=== PATIENT | female | born 1975 ===

== ENCOUNTER 2017-05-04 19:43 | Emergency (ER) | payer SELFPAY ==
[2017-05-04] MEDS ORDERED: Sodium Chloride 0.9% 1,000 ML IV STA (20:40)
[2017-05-04 20:55] LABS: BASO # 0.1 K/uL (0.0-0.2); BASO % 0.7 % (0.0-2.0); EOS # 0.2 K/uL (0.0-0.7); EOS % 1.6 % (0.0-4.0); HEMATOCRIT 39.1 % (34.0-47.0); LYMPH # 3.3 K/uL (1.0-4.3); MEAN CELL VOLUME 90.3 fl (81.0-99.0); MEAN CORPUSCULAR HEMOGLOBIN 28.8 pg (27.0-31.0); MEAN CORPUSCULAR HGB CONC 31.9 g/dL (33.0-37.0); MEAN PLATELET VOLUME 8.8 fl (7.2-11.7); MONO # 0.6 K/uL (0.0-0.8); MONO % 5.2 % (0.0-10.0); NEUT # 7.1 K/uL (1.8-7.0); NEUT % 63.5 % (50.0-75.0); RED CELL DISTRIBUTION WIDTH 12.4 % (11.5-14.5); WHITE BLOOD COUNT 11.2 K/uL (4.8-10.8)
[2017-05-04 21:06] LABS: ALB/GLOB RATIO 1.2 (1.0-2.1); ALCOHOL SERUM 180 mg/dl (0-10); ALKALINE PHOSPHATASE 163 U/L (38-126); ALT/SGPT 119 U/L (9-52); AST/SGOT 125 U/L (14-36); BILIRUBIN,TOTAL 0.3 mg/dl (0.2-1.3); BLOOD UREA NITROGEN 12 mg/dl (7-17); CALCIUM 8.7 mg/dL (8.4-10.2); CARBON DIOXIDE 24 mmol/L (22-30); CHLORIDE 108 mmol/L (98-107); GFR AFRICAN-AMERICAN > 60; GLUCOSE,RANDOM 108 mg/dL (65-105); POTASSIUM 3.6 MMOL/L (3.6-5.0); SODIUM 146 mmol/l (132-148)
--- NOTE | 2017-05-04 21:58 | ED PDOC ---
HPI: Psych/Substance Abuse Time Seen by Provider: 05/04/17 20:26 Chief Complaint (Nursing): Alcohol Ingestion Chief Complaint (Provider): Alcohol Ingestion ED Caveat: Intoxicated History Per: Patient, EMS History/Exam Limitations: intoxication Onset/Duration Of Symptoms: Mins (prior to arrival) Current Symptoms Are (Timing): Still Present Additional Complaint(s): 42 year old female who presents to the emergency department for evaluation of alcohol intoxication after drinking red wine with dinner associated with nausea and 1 episode of vomiting in a supermarket prior to arrival. Narcan was given to patient by police in field. PMD: none provided Past Medical History Reviewed: Historical Data, Nursing Documentation, Vital Signs Vital Signs: Last Vital Signs Temp 97.5 F L 05/04/17 19:58 Pulse 62 05/04/17 19:58 Resp 16 05/04/17 19:58 BP 98/60 L 05/04/17 19:58 Pulse Ox 99 05/04/17 19:58 - Medical History PMH: No Chronic Diseases - Surgical History Surgical History: Appendectomy, - Family History Family History: States: Unknown Family Hx - Social History Current smoker - smoking cessation education provided: No Alcohol: Social Drugs: Denies - Home Medications Home Medications: Ambulatory Orders Medication Instructions Recorded Ondansetron ODT [Zofran ODT] 4 mg PO Q8 PRN #12 odt 05/05/17 - Allergies Allergies/Adverse Reactions: Allergies Allergy/AdvReac Type Severity Reaction Status Date / Time No Known Allergies Allergy Verified 05/05/17 00:34 Review of Systems Review Of Systems: ROS cannot be obtained secondary to pt's inabilty to answer questions. (intoxication) Gastrointestinal: Positive for: Nausea, Vomiting Physical Exam - Reviewed Nursing Documentation Reviewed: Yes Vital Signs Reviewed: Yes - Physical Exam Appears: Positive for: Well, Non-toxic, No Acute Distress Head Exam: Positive for: ATRAUMATIC, NORMAL INSPECTION, NORMOCEPHALIC Skin: Positive for: Normal Color Eye Exam: Positive for: Normal appearance, EOMI, PERRL. Negative for: Nystagmus ENT: Positive for: Normal ENT Inspection Neck: Positive for: Normal, Painless ROM Cardiovascular/Chest: Positive for: Regular Rate, Rhythm, Chest Non Tender Respiratory: Positive for: Normal Breath Sounds. Negative for: Decreased Breath Sounds, Respiratory Distress Gastrointestinal/Abdominal: Positive for: Normal Exam, Soft. Negative for: Tenderness Extremity: Positive for: Normal ROM Neurologic/Psych: Positive for: Alert, Oriented, Mood/Affect (intoxicated), Gait (unsteady), Other (slurred speech) - Laboratory Results Result Diagrams: 05/04/17 20:51 05/04/17 20:51 - ECG O2 Sat by Pulse Oximetry: 99 (RA) Pulse Ox Interpretation: Normal Medical Decision Making Medical Decision Making: Initial Impression: Alcohol intoxication Initial Plan: * Alcohol serum * CMP * Drug screen, urine * Urine * CBC * NS 1,000ml IV per 1,000mls/hr * Zofran inj 4mg IV Scribe Attestation: Documented by Elen Miramontes, acting as a scribe for Simón Steward MD. Provider Scribe Attestation: All medical record entries made by the Scribe were at my direction and personally dictated by me. I have reviewed the chart and agree that the record accurately reflects my personal performance of the history, physical exam, medical decision making, and the department course for this patient. I have also personally directed, reviewed, and agree with the discharge instructions and disposition. Disposition - Clinical Impression Clinical Impression: Alcohol abuse with uncomplicated intoxication, Vomiting - Disposition Referrals: [facility] [Outside] Disposition Time: 02:00 Condition: GOOD Additional Instructions: Follow up with your PCP in 2 -3 days. Prescriptions: Ondansetron ODT [Zofran ODT] 4 mg PO Q8 PRN #12 odt PRN Reason: Nausea/Vomiting Instructions: Alcohol Intoxication (ED), Acute Nausea and Vomiting (ED)
[2017-05-05 02:01] VITALS: BP 112/73; PULSE 67; RESP 18; TEMP 98.6
[2017-05-13 00:08] VITALS: O2SAT 99
== END 2017-05-05 02:29 | disposition home or self-care (01) ==
LOC: H.ER 19:43
DX: F10.120 Alcohol abuse with intoxication, uncomplicated (principal); R11.11 Vomiting without nausea; Y90.6 Blood alcohol level of 120-199 mg/100 ml
CPT/HCPCS: 80053; 82948; 85025; 96360; 99283; G0480; J2405; J7040